=== PATIENT | female | born 1965 | race Two or more races ===

== ENCOUNTER 2017-03-25 02:32 | Emergency (ER) | payer SELFPAY | END 2017-03-25 05:00 | disposition home or self-care (01) | LOC: CED 02:32 | DX: L50.0 Allergic urticaria (principal) | CPT/HCPCS: 36415; 96361; 96374; 96375; 99284; J1200 ==

== ENCOUNTER 2017-03-26 08:23 | Emergency (ER) | payer SELFPAY | END 2017-03-26 13:20 | disposition home or self-care (01) | LOC: CED 08:23 | DX: L50.0 Allergic urticaria (principal); T78.2XXA Anaphylactic shock, unspecified, initial encounter; F17.200 Nicotine dependence, unspecified, uncomplicated | CPT/HCPCS: 96372; 99283; J0171; J1200; J2930 ==